=== PATIENT | male | born 1960 | race Caucasian/White ===

== ENCOUNTER 2018-04-09 20:24 | Emergency (ER) | payer OTHER ==
[2018-04-09 21:14] LABS: ADD MAN DIFF? NO
[2018-04-09 21:20] LABS: WHITE BLOOD COUNT 5.2 10^3/ul (4.8-10.8)
[2018-04-09 21:20] LABS: ABNORMAL IP MESSAGE 1; BASOPHILS % 0.6 % (0.0-2.0); EOSINOPHILS # 0.2 10^3/ul (0.0-0.5); EOSINOPHILS % 3.5 % (0.0-7.0); HEMOGLOBIN 7.3 g/dl (14.0-18.0); LYMPHOCYTES # 1.6 10^3/ul (0.8-2.9); MEAN CORPUSCULAR HEMOGLOBIN 16.4 pg (29.0-33.0); MEAN CORPUSCULAR HGB CONC 26.1 g/dl (32.0-37.0); MEAN CORPUSCULAR VOLUME 62.8 fl (82.0-101.0); MONOCYTE # 0.7 10^3/ul (0.3-0.9); MONOCYTES % 13.5 % (0.0-11.0); NEUTROPHIL # 2.7 10^3/ul (1.6-7.5); NEUTROPHILS % 51.4 % (39.0-77.0); PLATELET COUNT 185 10^3/UL (140-415); POSITIVE DIFF @See below; RED BLOOD COUNT 4.46 10^6/ul (4.70-6.10); RED CELL DISTRIBUTION WIDTH 23.5 % (11.5-14.5)
[2018-04-09 21:34] LABS: ANION GAP 7 (8-16); BLOOD UREA NITROGEN 19 mg/dl (7-20); CALCIUM 8.3 mg/dl (8.4-10.2); CARBON DIOXIDE 29 mmol/L (21-31); CHLORIDE 110 mmol/L (97-110); CREATININE 0.86 mg/dl (0.61-1.24); GLUCOSE 75 mg/dl (70-220); POTASSIUM 4.3 mmol/L (3.5-5.1); SODIUM 142 mmol/L (135-144)
[2018-04-09 21:46] LABS: B-TYPE NATRIURETIC PEPTIDE 175 PG/ML (0-125); TROPONIN-I < 0.010 ng/ml (0.000-0.120)
[2018-04-09] MEDS ORDERED: SOD CHLORIDE 0.9% 250 ML IV (23:08)
[2018-04-09 23:35] LABS: RETICULOCYTE RBC 4.39
[2018-04-09 23:35] LABS: RETICULOCYTE COUNT # 0.066 X10^6 (0.020-0.110); RETICULOCYTE COUNT % 1.5 % (0.5-1.5)
[2018-04-09 23:52] LABS: IRON 26 ug/dl (35-150)
[2018-04-09 23:53] LABS: LACTATE DEHYDROGENASE 433 IU/L (313-618)
[2018-04-10 00:02] LABS: % IRON SATURATION 7 % SAT (22-52); TOTAL IRON BINDING CAPACITY 384 ug/dl (241-421)
[2018-04-10] MEDS: FAMOTIDINE 20 MG TAB PO (00:12)
[2018-04-10 00:30] LABS: FERRITIN 4.5 ng/ml (11.1-264.0)
[2018-04-11 17:21] LABS: TRANSFERRIN 303 mg/dL (188-341)
== END 2018-04-10 02:45 | disposition short-term general hospital (02) ==
LOC: FTE 20:24 → E/R 04-10 02:45
DX: D64.9 Anemia, unspecified (principal); J44.9 Chronic obstructive pulmonary disease, unspecified; F17.210 Nicotine dependence, cigarettes, uncomplicated
CPT/HCPCS: 36415; 71045; 80048; 82728; 83540; 83615; 83880; 84466; 84484; 85025; 85045; 86850; 86900; 86901; 86920; 93005; 99285-25